=== PATIENT | male | born 1955 | race Caucasian/White ===

== ENCOUNTER 2016-09-30 09:18 | Outpatient (CLI) | payer BC | END 2016-09-30 09:19 | disposition home or self-care (01) | DX: C61 Malignant neoplasm of prostate (principal) ==

== ENCOUNTER 2016-12-02 14:00 | Outpatient (CLI) | payer BC | END 2016-12-02 14:01 | disposition home or self-care (01) | DX: R21 Rash and other nonspecific skin eruption (principal) ==

== ENCOUNTER 2017-03-06 08:00 | Outpatient (CLI) | payer BC ==
[2017-03-12 13:40] LABS: ACETONE None Detected (()); AMPHETAMINES negative (()); BARBITURATES negative (()); BENZODIAZEPINES negative (()); ETHYL ALCOHOL 12 mg/dL (()); ISOPROPANOL None Detected (()); METHADONE negative (()); METHYL ALCOHOL None Detected (()); OPIATES negative (()); PROPOXYPHENE negative (())
== END 2017-03-06 08:01 | disposition home or self-care (01) ==
LOC: LAB.F 08:00
PROVIDERS: ATTEND Family Medicine
DX: G89.4 Chronic pain syndrome (principal)
CPT/HCPCS: 36415; 80307; 80320

== ENCOUNTER 2017-04-01 11:03 | Outpatient (CLI) | payer SELFPAY | END 2017-04-01 11:04 | disposition home or self-care (01) | DX: C61 Malignant neoplasm of prostate (principal) ==

== ENCOUNTER 2018-04-24 09:37 | Outpatient (CLI) | payer SELFPAY | END 2018-04-24 09:38 | disposition home or self-care (01) | LOC: LAB.F 09:37 | PROVIDERS: ATTEND Family Medicine | DX: C61 Malignant neoplasm of prostate (principal) | CPT/HCPCS: 36415; 84153 ==

== ENCOUNTER 2018-05-26 10:30 | Outpatient (CLI) | payer OTHER ==
[2018-05-26 20:07] LABS: MUDS CUTOFF CONCENTRATIONS CUTOFF CONC BELOW:
[2018-05-26 20:26] LABS: AMPHETAMINE SCREEN,URINE NEGATIVE (NEGATIVE); BENZODIAZEPINES SCREEN, URINE POSITIVE (NEGATIVE); COCAINE SCREEN URINE NEGATIVE (NEGATIVE); METHADONE SCREEN, URINE NEGATIVE (NEGATIVE); METHAMPHETAMINES SCREEN, URINE NEGATIVE (NEGATIVE); OPIATE SCREEN, URINE NEGATIVE (NEGATIVE); OXYCODONE SCREEN, URINE POSITIVE (NEGATIVE); PROPOXYPHENE SCREEN, URINE NEGATIVE (NEGATIVE); TRICYCLIC ANTIDEPRESSANT,URINE NEGATIVE (NEGATIVE)
== END 2018-05-26 10:31 | disposition home or self-care (01) ==
LOC: LAB.R 10:30
PROVIDERS: ATTEND Nurse Practitioner Family
DX: Z79.891 Long term (current) use of opiate analgesic (principal)
CPT/HCPCS: 80306

== ENCOUNTER 2018-08-27 08:00 | Outpatient (CLI) | payer OTHER ==
[2018-08-27 14:01] LABS: MUDS CUTOFF CONCENTRATIONS CUTOFF CONC BELOW:
[2018-08-27 14:48] LABS: AMPHETAMINE SCREEN,URINE NEGATIVE (NEGATIVE); BENZODIAZEPINES SCREEN, URINE POSITIVE (NEGATIVE); COCAINE SCREEN URINE NEGATIVE (NEGATIVE); METHADONE SCREEN, URINE NEGATIVE (NEGATIVE); METHAMPHETAMINES SCREEN, URINE NEGATIVE (NEGATIVE); OPIATE SCREEN, URINE NEGATIVE (NEGATIVE); OXYCODONE SCREEN, URINE POSITIVE (NEGATIVE); PROPOXYPHENE SCREEN, URINE NEGATIVE (NEGATIVE); TRICYCLIC ANTIDEPRESSANT,URINE NEGATIVE (NEGATIVE)
== END 2018-08-27 23:59 | disposition home or self-care (01) ==
LOC: LAB.R 08:00
PROVIDERS: ATTEND Nurse Practitioner Family
DX: Z79.891 Long term (current) use of opiate analgesic (principal)
CPT/HCPCS: 80306

== ENCOUNTER 2018-11-03 14:17 | Outpatient (CLI) | payer OTHER | END 2018-11-03 14:18 | disposition home or self-care (01) | LOC: SC 14:17 | PROVIDERS: ATTEND Nurse Practitioner Family | DX: G47.33 Obstructive sleep apnea (adult) (pediatric) (principal); E66.9 Obesity, unspecified; Z68.36 Body mass index [BMI] 36.0-36.9, adult | CPT/HCPCS: 99204; 99212 ==

== ENCOUNTER 2018-11-15 19:30 | Outpatient (CLI) | payer OTHER | END 2018-11-15 23:59 | disposition home or self-care (01) | LOC: SC 19:30 | PROVIDERS: ATTEND Internal Medicine Pulmonary Disease | DX: G47.33 Obstructive sleep apnea (adult) (pediatric) (principal) | CPT/HCPCS: 95806 ==

== ENCOUNTER 2018-12-14 09:41 | Outpatient (CLI) | payer OTHER | END 2018-12-14 09:42 | disposition home or self-care (01) | LOC: SC 09:41 | PROVIDERS: ATTEND Internal Medicine Pulmonary Disease | DX: G47.33 Obstructive sleep apnea (adult) (pediatric) (principal) | CPT/HCPCS: 99212; 99213 ==

== ENCOUNTER 2019-01-11 08:00 | Outpatient (CLI) | payer OTHER ==
[2019-01-11 17:55] LABS: HB2 TOTAL 16.4 g/dL; HEMOGLOBIN A1C 0.57 g/dL; HEMOGLOBIN A1C % 5.3 % (4.6-6.2)
[2019-01-11 18:02] LABS: BASOPHILS % (AUTO) 0.5 %; EOSINOPHILS # (AUTO) 0.1 10^3/uL (0.0-0.7); EOSINOPHILS % (AUTO) 2.1 %; HGB - HEMOGLOBIN 15.1 g/dL (14.0-18.0); LYMPHOCYTES # (AUTO) 1.4 10^3/uL (1.5-3.5); LYMPHOCYTES % (AUTO) 19.5 %; MEAN CORPUSCULAR HGB CONC 33.9 g/dL (32.0-36.0); MEAN CORPUSCULAR VOLUME 91.6 fL (80.0-94.0); MEAN PLATELET VOLUME 7.8 fL (7.4-11.4); MONOCYTES # (AUTO) 0.6 10^3/uL (0.0-1.0); MONOCYTES % (AUTO) 7.8 %; NEUTROPHILS # (AUTO) 4.9 10^3/uL (1.5-6.6); NEUTROPHILS % (AUTO) 70.1 %; PLT - PLATELET COUNT 243 10^3/uL (130-450); RED BLOOD COUNT 4.86 10^6/uL (4.70-6.10); RED CELL DISTRIBUTION WIDTH 13.3 % (12.0-15.0)
[2019-01-11 18:05] LABS: ALBUMIN 3.9 g/dL (3.2-5.5); ALBUMIN/GLOBULIN RATIO 1.1 (1.0-2.2); ALKALINE PHOSPHATASE 69 IU/L (42-121); ALT ALANINE AMINOTRANSFERASE 29 IU/L (10-60); AST ASPARTATE AMINOTRANSFERASE 27 IU/L (10-42); BILIRUBIN,TOTAL 1.1 mg/dL (0.2-1.0); BUN - BLOOD UREA NITROGEN 16 mg/dL (6-20); CALCIUM 8.7 mg/dL (8.5-10.3); CARBON DIOXIDE - CO2 27 mmol/L (21-32); CHLORIDE 104 mmol/L (101-111); CHOL/HDL RATIO 2.5 (<5.0); CHOLESTEROL 179 mg/dL; CREATININE 0.8 mg/dL (0.6-1.2); GFR - MDRD 98 (>89); GLUCOSE 99 mg/dL (70-100); HDL CHOLESTEROL 72 mg/dL; LDL CHOLESTEROL,CALCULATED 93 mg/dL; LDL/HDL RATIO 1.3 (<3.6); SODIUM 136 mmol/L (135-145); TOTAL PROTEIN 7.3 g/dL (6.7-8.2); VLDL CHOLESTEROL 14 mg/dL
== END 2019-01-11 23:59 | disposition home or self-care (01) ==
LOC: LAB.S 08:00
PROVIDERS: ATTEND Nurse Practitioner Family
DX: I10 Essential (primary) hypertension (principal); Z13.220 Encounter for screening for lipoid disorders; Z13.1 Encounter for screening for diabetes mellitus; Z12.5 Encounter for screening for malignant neoplasm of prostate
CPT/HCPCS: 36415; 80053; 80061; 83036; 83721; 84153; 84443; 85025

== ENCOUNTER 2020-03-02 12:37 | Outpatient (CLI) | payer OTHER ==
--- NOTE | 2020-03-02 13:00 | XRAY Report ---
Reason: FATIGUE, COUGH Procedure Date: 03/02/2020 Accession Number: [id number] / [id number] Procedure: XRS - Chest 2 View X-Ray CPT Code: 83315 Final Report FULL RESULT: PROCEDURE: Chest 2 View X-Ray INDICATIONS: FATIGUE, COUGH TECHNIQUE: 2 view(s) of the chest. COMPARISON: None. FINDINGS: Surgical changes and devices: None. Lungs and pleura: No pleural effusions or pneumothorax. Minimal streaky opacity at the left lung base. Mediastinum: Mediastinal contours are normal. Heart size is normal. Bones and chest wall: No suspicious bony abnormalities. Soft tissues appear unremarkable. IMPRESSION: Minimal streaky opacity at the left lung base. Favor atelectasis over pneumonia. Reviewed by: Antonio Olivera MD on 03/02/2020 12:58 PM PDT Approved by: Antonio Olivera MD on 03/02/2020 12:58 PM PDT Station ID: [id number]
== END 2020-03-02 12:38 | disposition home or self-care (01) ==
LOC: DI.S 12:37
PROVIDERS: ATTEND Registered Nurse
DX: R53.83 Other fatigue (principal); R05 Cough
CPT/HCPCS: 71046

== ENCOUNTER 2020-03-21 10:02 | Outpatient (CLI) | payer OTHER ==
[2020-03-21 15:19] LABS: BASOPHILS # (AUTO) 0.1 10^3/uL (0.0-0.1); BASOPHILS % (AUTO) 0.8 %; EOSINOPHILS # (AUTO) 0.2 10^3/uL (0.0-0.7); EOSINOPHILS % (AUTO) 3.1 %; HGB - HEMOGLOBIN 14.7 g/dL (14.0-18.0); LYMPHOCYTES # (AUTO) 1.2 10^3/uL (1.5-3.5); LYMPHOCYTES % (AUTO) 18.9 %; MEAN CORPUSCULAR HEMOGLOBIN 31.1 pg (27.0-31.0); MEAN CORPUSCULAR HGB CONC 33.1 g/dL (32.0-36.0); MEAN CORPUSCULAR VOLUME 94.1 fL (80.0-94.0); MEAN PLATELET VOLUME 9.7 fL (7.4-11.4); MONOCYTES # (AUTO) 0.5 10^3/uL (0.0-1.0); MONOCYTES % (AUTO) 7.5 %; NEUTROPHILS # (AUTO) 4.2 10^3/uL (1.5-6.6); PLT - PLATELET COUNT 219 10^3/uL (130-450); RED BLOOD COUNT 4.72 10^6/uL (4.70-6.10); RED CELL DISTRIBUTION WIDTH 12.9 % (12.0-15.0); WHITE BLOOD COUNT 6.1 x10^3/uL (4.8-10.8)
[2020-03-21 15:45] LABS: ALBUMIN/GLOBULIN RATIO 1.2 (1.0-2.2); ALKALINE PHOSPHATASE 62 IU/L (42-121); ALT ALANINE AMINOTRANSFERASE 32 IU/L (10-60); AST ASPARTATE AMINOTRANSFERASE 27 IU/L (10-42); BILIRUBIN,TOTAL 0.7 mg/dL (0.2-1.0); BUN - BLOOD UREA NITROGEN 18 mg/dL (6-20); CALCIUM 8.9 mg/dL (8.5-10.3); CARBON DIOXIDE - CO2 26 mmol/L (21-32); CHLORIDE 105 mmol/L (101-111); CHOL/HDL RATIO 2.4 (<5.0); CHOLESTEROL 178 mg/dL; CREATININE 0.7 mg/dL (0.6-1.2); GLUCOSE 96 mg/dL (70-100); HDL CHOLESTEROL 74 mg/dL; LDL CHOLESTEROL,CALCULATED 92 mg/dL; LDL/HDL RATIO 1.2 (<3.6); SODIUM 139 mmol/L (135-145); TOTAL PROTEIN 7.3 g/dL (6.7-8.2); VLDL CHOLESTEROL 12 mg/dL
== END 2020-03-21 10:03 | disposition home or self-care (01) ==
LOC: LAB.S 10:02
PROVIDERS: ATTEND Registered Nurse
DX: R53.83 Other fatigue (principal); R05 Cough; I10 Essential (primary) hypertension; G47.30 Sleep apnea, unspecified
CPT/HCPCS: 36415; 80053; 80061; 83721; 84443; 85025; 86769

== ENCOUNTER 2020-03-29 11:35 | Outpatient (CLI) | payer OTHER ==
[2020-03-29] MEDS ORDERED: IOVERSOL 320 100 ML VIAL IVP ONE ×2 (11:44→13:16)
--- NOTE | 2020-03-29 13:34 | CT Report ---
PROCEDURE: CHEST W INDICATIONS: CHEST XRAY,ABNORMAL,FATIGUE, COUGH CONTRAST: IV CONTRAST: Optiray 320 ml: 100 PO CONTRAST: *NO PO CONTRAST TECHNIQUE: After the administration of intravenous contrast, 5 mm thick sections acquired from the pulmonary api kiki to the posterior costophrenic angles. 7 mm thick coronal MIP reformats were acquired. For radia tion dose reduction, the following was used: automated exposure control, adjustment of mA and/or kV according to patient size. COMPARISON: CXR 03/02/2020. CT abdomen and pelvis 04/11/2014. FINDINGS: Image quality: Excellent. Lungs and pleura: No significant acute air space opacities. Mild streaky opacity in the right lung b ase and lingula consistent with atelectasis. No pleural effusions or pneumothorax. Central and perip heral airways are patent and normal in caliber. Mediastinum: Heart size is normal. No pericardial effusion. No mediastinal or hilar adenopathy by size criteria. Thoracic aorta and central pulmonary arteries are normal in size. No central pulmonar y embolism. Esophagus is normal in caliber. No hiatal hernia. Bones and chest wall: Gynecomastia. No suspicious bony lesions. Mild height loss at the T12 vertebra l body, unchanged. No axillary or supraclavicular adenopathy by size criteria. Thyroid gland is unr emarkable. Abdomen: Hepatic steatosis. Visualized upper abdominal solid organs otherwise appear normal. Upper a bdominal bowel loops are normal in caliber. IMPRESSION: 1. Minimal atelectasis. No pneumonia demonstrated. 2. No mass or adenopathy. 3. Hepatic steatosis. Reviewed by: Antonio Olivera MD on 03/29/2020 1:32 PM PDT Approved by: Antonio Olivera MD on 03/29/2020 1:32 PM PDT Station ID: [id number]
== END 2020-03-29 11:36 | disposition home or self-care (01) ==
LOC: DI 11:35
PROVIDERS: ATTEND Registered Nurse
DX: R91.8 Other nonspecific abnormal finding of lung field (principal); K76.0 Fatty (change of) liver, not elsewhere classified
CPT/HCPCS: 71260; Q9967

== ENCOUNTER 2020-04-05 10:42 | Outpatient (CLI) | payer OTHER ==
--- NOTE | 2020-04-05 11:47 | XRAY Report ---
PROCEDURE: Thoracic Spine 2 View INDICATIONS: BACK PAIN TECHNIQUE: 3 views of the thoracic spine were acquired. COMPARISON: None. FINDINGS: Bones: No fractures or dislocations. There is, however, bridging osteophytes along the thoracic spin e and what appears to be a mild reduction of vertebral body disc height at T12, potentially a candi sánchez fracture of indeterminant age. This is seen both on the frontal and lateral views. No suspiciou s bony lesions. 12 pairs of ribs are noted, and appear intact where visualized. Soft tissues: No paravertebral stripe thickening. IMPRESSION: Suspect mild compression fracture at T12, chronicity uncertain. Body habitus is relatively large, murray lity of visualization through this area is somewhat limited. MR scanning can accurately establish pre sence or absence of acute or subacute compression fractures if clinically warranted. Reviewed by: Luis Yeboah MD on 04/05/2020 11:46 AM PDT Approved by: Luis Yeboah MD on 04/05/2020 11:46 AM PDT Station ID: [id number]
--- NOTE | 2020-04-05 11:55 | XRAY Report ---
PROCEDURE: Lumbar Spine Complete INDICATIONS: BACK PAIN TECHNIQUE: 5 views of the lumbar spine were acquired. COMPARISON: Comparison thoracic spine plain films same day reviewed. FINDINGS: Bones: 5 [id number] vertebrae are present. There is normal bony alignment maintained by prior transverse pedicle screw placement and vertical fixation rods crossing L4-L5. Note is made that the i nferior transverse pedicle screws at the L5 level is fractured and slightly angulated as a subtle fin ding but definite. Note is made of a T12 mild anterior wedge compression fracture, chronicity uncertain. No definite ac [place] vertebral body compression fractures. No suspicious bony lesions. Soft tissues: Overlying bowel gas pattern is normal. No suspicious soft tissue calcifications. IMPRESSION: 1. Prior L4-L5 fusion procedure with transverse pedicle screws and vertical fixation rods crossing th is area. Inferior right-handed transverse pedicle screw is fractured but only slightly displaced on t his examination. 2. 30% anterior wedge compression fracture at T12, chronicity uncertain. Reviewed by: Luis Yeboah MD on 04/05/2020 11:53 AM PDT Approved by: Luis Yeboah MD on 04/05/2020 11:53 AM PDT Station ID: [id number]
== END 2020-04-05 10:43 | disposition home or self-care (01) ==
LOC: DI.S 10:42
PROVIDERS: ATTEND Family Medicine
DX: R93.7 Abnormal findings on diagnostic imaging of other parts of musculoskeletal system (principal); M48.54XA Collapsed vertebra, not elsewhere classified, thoracic region, initial encounter for fracture; T84.296A Other mechanical complication of internal fixation device of vertebrae, initial encounter; N40.0 Benign prostatic hyperplasia without lower urinary tract symptoms; Z98.1 Arthrodesis status; Z85.46 Personal history of malignant neoplasm of prostate
CPT/HCPCS: 36415; 72070; 72110; 84153

== ENCOUNTER 2022-09-10 14:18 | Outpatient (CLI) | payer OTHER ==
[2022-09-10 15:19] VITALS: BP 128/70
--- NOTE | 2022-09-10 15:19 | SLEEP CARE CONSULTATION ---
Information from patient questionnaire entered by Dyan Lopez. I have reviewed and concur with the information entered by Dyan Lopez. This document represents the service I personally performed and the decisions made by me, Christine Villa ARNP. History of Present Illness Service Date and Time: 09/10/2022 1418 Reason for Visit: New patient, sleep apnea on CPAP therapy, Re-establish care Chief Complaint: reports: Unrefreshed sleep, Snoring, Observed pauses in breathing, Fatigue, Frequent awakenings at night, Other (UPDATE UPPLIES ) Date of Onset: 20+YRS Usual bedtime: 9PM Time it takes to fall asleep: 10MIN Snores at night: Yes Observed to quit breathing while asleep: Yes Sleeps alone due to snoring: Yes Number of times waking at night: 3-4 Reasons for waking at night: reports: Other (MACHINE AND MASK NOISE ) Toss, Turn, or Twitch while sleeping: Yes Recalls having dreams: Yes Usually gets out of bed at: 8AM Feels refreshed in the morning: No Morning headache: No Sleepy or fatigued during the day: Yes Ever fallen asleep while driving: No Takes day naps: No Prior sleep studies: Yes (THREE YRS AGO AT HOME ) Additional HPI information: ISAI MARQUES was previously diagnosed to have very severe, AHI 65.1, obstructive sleep apnea-hypopnea syndrome and comes in today to re-establish care for CPAP therapy. - Parasomnia Symptoms Ever been unable to move upon waking from sleep: No Walks in sleep: No Talks in sleep: No Ever acted out dreams in sleep: No Ever felt weak in the knees when startled or emotional: No Bothered by creepy, crawly, restless sensations in legs: Yes Problems with memory or concentration: Yes CPAP Compliance Data - Data Reviewed with Patient Average duration of nightly device use: 7 hours 44 minutes Compliance rate %: 96 (90/90 days used) Current pressure setting (cmH2O): 10-15 Average residual AHI: 5.5 Central apnea: 0.5 Obstructive apnea: 1.4 Average large leak: 32.0 l/min Compliance data discussion: Patient had HST with [facility] on 11/15/2018 which showed severe obstructive sleep apnea with AHI of 65.1. He gets his supplies from [employer]. He has a ResMed Airsense 10 that is making loud noises when he is using it for the last 4-6 months and the noise is getting louder. He is using a nasal cushion mask that goes over a nose. He has not changed this for a long time and I advised him to change it more often to reduce large mask leaks. Subjective Patient concerns: reports: other (CPAP making loud noises with respirations). denies: aerophagia, mask discomfort, air blowing in eyes, mask leak noise, condensation in mask/hose, nasal congestion, dry mouth, nose, throat, epistaxis Observed to snore while using device: No Current pressure setting perceived as: comfortable On therapy, patient: reports: sleeping better, awakening more refreshed, being more awake and alert during the day, more rested overall, other (he says he can't sleep without it). denies: drowsiness while driving Initial Henderson Sleepiness Scale score: 8 (09/10/22) Past Medical History Past Medical History: reports: Hypertension, Claustrophobia, Arthritis, Impotence, Attention deficit Social History The patient's occupation is a RE. Patient is and lives in [place]. Have you smoked in the past 12 months: No Cigarettes per day (20/pack): 40 Years of smokin Quit date: 1986 Smoking Pack Years: 30.0 Alcohol use: Yes Alcohol amount and frequency: 2 DRINKS EVERY NIGHT Caffeine use: No Family History Family history of sleep disordered breathing: Yes Family Hx Sleep Apnea: Father: Snoring, Sibling: Snoring, Sleep apnea - Treated Allergies and Home Medications Known drug allergies: Yes (PENICILLINS) Drug allergies reviewed: Yes Home medication list reviewed: Yes (see list in EMR) Review of Systems Weight gain over past 5 years: 20 Cardiovascular: reports: high blood pressure Gastrointestinal: denies: heartburn Urinary: reports: urgency, impotence Neurological: reports: gait or balance problems. denies: headaches Psychiatric: reports: Attention Deficit Hyperactivity. denies: anxiety, depression Endocrine: denies: thyroid disease Musculoskeletal: reports: joint pain, back pain Immunologic: reports: rash, itching Physical Exam Vital signs obtained and entered by: DYAN Morales MA Blood Pressure: 128/70 (LEFT ARM) Cuff size: regular Heart Rate: 76 O2 Saturation: 96 Height: 5 ft 10 in Weight: 244 lb 9.6 oz Body Mass Index: 35.1 BMI Classification: Obese Neck circumference: 19 Heart: regular rate and rhythm Lungs: clear bilaterally Impression and Plan 1. Obstructive Sleep Apnea-Hypopnea Syndrome, very severe, with good treatment compliance and good apnea control with minimal elevation of residual AHI. On CPAP therapy, the patient has better sleep quality and is more rested overall. Patient states in the last 4 to 6 months there is a noise coming from his mac indra when he is using it. It gets louder when he breathes with the machine. He has had to use the earplugs to be able to sleep because he cannot sleep without his CPAP. He has tried to call his DME and insurance company to get a replacement but he has not been able to get anyone on the phone. He has a ResMed Airsense 10 that was received in 2019. The patients CPAP is starting to make louder noise, a sign of malfunction. Thus we will try to get the CPAP updated. A DWO prescription will be made. Compliance guidelines for new device and follow up discussed.Patient's apnea severity and rationale for treatment to reduce apnea, improve sleep quality and reduce cardiovascular and cerebrovascular events was reviewed. I also reviewed the benefit of consistent device use of CPAP for hypertension and attention deficit. 2. Obesity, unspecified. Currently patients BMI is 35.1. Obesity increases the risk of apnea, CPAP pressure requirements and overall health risks especially cardiovascular and diabetes. Thus patient is advised to lose weight. * Continue auto CPAP pressure at 10-15 cmH2O * Update machine due to malfunction * Update supplies * Notify me if snoring with mask or feeling that the pressure is too much or too little * Attempt to lose weight * Call this office if any problems using CPAP * Return for follow up one month after obtaining new machine, or sooner if concerns arise Counseling Topics: Spare mask, Weight loss health impact Visit Type: In Office Time Spent with Patient (minutes): 30 Provider Statement: I spent 100% of the Face to Face Visit with the patient with greater than 50% spent counseling the patient and coordination of care.
== END 2022-09-10 14:19 | disposition home or self-care (01) ==
LOC: SC 14:18
PROVIDERS: ATTEND Nurse Practitioner Family
DX: G47.33 Obstructive sleep apnea (adult) (pediatric) (principal); E66.9 Obesity, unspecified; Z68.35 Body mass index [BMI] 35.0-35.9, adult; Z87.891 Personal history of nicotine dependence
CPT/HCPCS: 99203; 99212

== ENCOUNTER 2022-11-04 12:05 | Outpatient (CLI) | payer OTHER ==
--- NOTE | 2022-11-04 13:29 | XRAY Report ---
PROCEDURE: Hand 3 View LT INDICATIONS: LEFT HAND PAIN TECHNIQUE: 3 views of the hand(s) acquired. COMPARISON: Left wrist 3 views from the same date FINDINGS: Bones: Remote ORIF of the distal radius and ulna. Orthopedic hardware intact. Extensive posttraumatic degenerative change. Chronic pole or dislocation at the radiocarpal joint and distal dissociation be tween the radius and ulna, which are wider heart and normal. Deformity of the lunate secondary to tra huang and degenerative change. On the lateral view, there is a suggestion of a possible acute fracture of the dorsal aspect of the base of one of the metacarpal bones. Soft tissues: No suspicious soft tissue calcifications. IMPRESSION: 1. Remote ORIF of the distal radius and ulna. 2. Chronic posttraumatic degenerative change. 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 3. Suggestion of possible dorsal aspect base of metacarpal fracture seen on the lateral view. Reviewed by: Khoa Vaughn MD on 11/04/2022 1:28 PM PST Approved by: Khoa Vaughn MD on 11/04/2022 1:28 PM PST Station ID: [id number]
--- NOTE | 2022-11-04 15:42 | XRAY Report ---
PROCEDURE: Wrist 3 View LT INDICATIONS: LEFT WRIST PAIN TECHNIQUE: 3 views of the wrist were acquired. COMPARISON: Left hand radiographs same day FINDINGS: Bones: Postsurgical changes of the left wrist redemonstrated with a distal ulnar plate and screw, and distal radius plate and multiple screws. The hardware appears intact. There is pronounced degenerati ve changes of the radiocarpal articulation with joint space loss, and bony deformity. Possible wideni ng of the distal radial ulnar joint. Remote ulnar styloid fracture present. No definite acute fractur e identified. Soft tissues: No suspicious soft tissue calcifications. IMPRESSION: Postsurgical changes and substantial likely post traumatic degenerative changes of the wrist. No defi nite acute fracture visualized, but anatomical distortion makes evaluation difficult. If symptoms per sist, follow-up radiographs and/or CT may be helpful for further evaluation. Reviewed by: Gurwinder Cespedes MD on 11/04/2022 3:41 PM PST Approved by: Gurwinder Cespedes MD on 11/04/2022 3:41 PM PST Station ID: [id number]
== END 2022-11-04 12:08 | disposition home or self-care (01) ==
LOC: DI.S 12:05
PROVIDERS: ATTEND Registered Nurse
DX: M19.132 Post-traumatic osteoarthritis, left wrist (principal); M24.432 Recurrent dislocation, left wrist

== ENCOUNTER 2022-12-19 08:00 | Outpatient (CLI) | payer OTHER ==
--- NOTE | 2022-12-19 11:35 | XRAY Report ---
PROCEDURE: Hand 3 View LT INDICATIONS: LEFT 3RD MC FRACTURE TECHNIQUE: 3 views of the left hand(s) acquired. COMPARISON: 11/04/2022 FINDINGS: Bones: Again noted is what appears to be a nondisplaced fracture involving the base of the third meta carpal. This appears stable from prior examination. Again noted is old postsurgical change involving the distal radius and ulna. There is a chronic dislo cation of the radial carpal joint with associated severe degenerative change. No suspicious bony lesions. Soft tissues: No suspicious soft tissue calcifications. IMPRESSION: 1. Relatively unchanged appearance of a nondisplaced fracture involving the base of the third metacar pal. 2. 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 3. Old stable postsurgical changes distal radius and ulna. Reviewed by: Neo Moore MD on 12/19/2022 11:34 AM PDT Approved by: Neo Moore MD on 12/19/2022 11:34 AM PDT Station ID: [id number]
--- NOTE | 2022-12-19 14:25 | XRAY Report ---
PROCEDURE: Wrist 3 View LT INDICATIONS: LEFT WRIST ORIF TECHNIQUE: 3 views of the wrist were acquired. COMPARISON: X-ray wrist 11/04/2022 FINDINGS: Bones: Distal radial fixation as well as ulnar fixation are identified. All hardware appears intact. There remains a slight posterior displacement of the carpal bones in relation to the radiocarpal join t on lateral view. This is unchanged. Soft tissues: No suspicious soft tissue calcifications. IMPRESSION: Aligned radial fixation with stable appearance of alignment. Reviewed by: Rosa Warner MD on 12/19/2022 2:24 PM PDT Approved by: Rosa Warner MD on 12/19/2022 2:24 PM PDT Station ID: [id number]
== END 2022-12-19 23:59 | disposition home or self-care (01) ==
LOC: DI.WOS 08:00
PROVIDERS: ATTEND Orthopaedic Surgery
DX: S62.313D Displaced fracture of base of third metacarpal bone, left hand, subsequent encounter for fracture with routine healing (principal); M19.042 Primary osteoarthritis, left hand

== ENCOUNTER 2023-07-23 11:24 | Outpatient (CLI) | payer OTHER ==
--- NOTE | 2023-07-23 12:12 | XRAY Report ---
PROCEDURE: Chest 2 View X-Ray INDICATIONS: PRODUCTIVE COUGH TECHNIQUE: 2 views of the chest were acquired. COMPARISON: 03/02/2020 FINDINGS: Surgical changes and devices: None. Lungs and pleura: No pneumothorax. No substantial pleural effusion. Left lower lobe consolidation. R ight lung is clear. Mediastinum: Mediastinal contours appear normal. Heart size is normal. Bones and chest wall: No suspicious bony lesions. Overlying soft tissues appear unremarkable. IMPRESSION: Left lower lobe pneumonia. Recommend follow-up chest radiograph 4-6 weeks after treatment to document resolution of findings and /or return to baseline exam. Reviewed by: Jason Mark MD on 07/23/2023 12:11 PM PDT Approved by: Jason Mark MD on 07/23/2023 12:11 PM PDT Station ID: [id number]
== END 2023-07-23 23:59 | disposition home or self-care (01) ==
LOC: DI.S 11:24
PROVIDERS: ATTEND Physician Assistant
DX: J18.9 Pneumonia, unspecified organism (principal)

== ENCOUNTER 2023-07-30 11:41 | Outpatient (CLI) | payer OTHER ==
--- NOTE | 2023-07-30 14:32 | XRAY Report ---
PROCEDURE: Chest 2 View X-Ray INDICATIONS: PNEUMONIA, LEFT LOWER LOBE TECHNIQUE: 2 views of the chest were acquired. COMPARISON: None. FINDINGS: Surgical changes and devices: None. Lungs and pleura: No pleural effusions or pneumothorax. Continued left basilar pneumonia. Ill-define d lucency suggest possible cavity formation. Cannot exclude a pulmonary abscess. The size of the infi ltrate does not appear significantly different. Mediastinum: Mediastinal contours appear normal. Heart size is normal. Bones and chest wall: No suspicious bony lesions. Overlying soft tissues appear unremarkable. IMPRESSION: No significant change, size of left basilar pneumonia. Subtle findings suggest possible cavity format ion. Consider CT chest with IV contrast for further evaluation. Reviewed by: Khoa Vaughn MD on 07/30/2023 2:31 PM PST Approved by: Khoa Vaughn MD on 07/30/2023 2:31 PM PST Station ID: [id number]
== END 2023-07-30 23:59 | disposition home or self-care (01) ==
LOC: DI.S 11:41
PROVIDERS: ATTEND Registered Nurse
DX: J18.9 Pneumonia, unspecified organism (principal)

== ENCOUNTER 2023-08-12 11:11 | Outpatient (CLI) | payer OTHER ==
--- NOTE | 2023-08-12 15:38 | XRAY Report ---
PROCEDURE: Chest 2 View X-Ray INDICATIONS: LEFT LOWER LOBE PNEUMONIA TECHNIQUE: 2 views of the chest were acquired. COMPARISON: 07/23/2023, 07/30/2023 FINDINGS: Surgical changes and devices: None. Lungs and pleura: Stable left lower lobe consolidation. Mediastinum: Mediastinal contours appear normal. Heart size is normal. Bones and chest wall: No suspicious bony lesions. Overlying soft tissues appear unremarkable. IMPRESSION: Stable left lower lobe consolidation. Given persistence, recommend CT for further evaluation. Reviewed by: Gus Betancourt on 08/12/2023 3:37 PM [facility] Approved by: Gus Betancourt on 08/12/2023 3:37 PM [facility] Station ID: [id number]
== END 2023-08-12 23:59 | disposition home or self-care (01) ==
LOC: DI.S 11:11
PROVIDERS: ATTEND Emergency Medicine
DX: J18.9 Pneumonia, unspecified organism (principal)

== ENCOUNTER 2023-11-02 10:32 | Outpatient (CLI) | payer OTHER ==
--- NOTE | 2023-11-02 12:41 | Ultrasound Report ---
PROCEDURE: Abdomen Complete INDICATIONS: NAUSEA TECHNIQUE: Real-time scanning was performed of the abdominal and retroperitoneal organs, with image documentatio n. COMPARISON: None. FINDINGS: Evaluation is limited secondary to bowel gas. Liver: Liver is mildly enlarged and homogeneous in echotexture. Liver parenchyma is diffusely echoge teodora. Main portal vein is patent with hepatopedal flow. Gallbladder: No stones or sludge. Normal wall thickness measuring 3 mm. No pericholecystic fluid. Biliary ducts: Intrahepatic bile ducts are non-dilated. Extrahepatic bile duct caliber measures 5 m m. Normal is 6-7 mm or less in diameter, or 10 mm or less post-cholecystectomy. Pancreas: Visualized portions of the pancreas are sonographically normal. Spleen: Spleen is normal in size and homogeneous in echotexture. Kidneys: Kidneys are normal in size and echotexture. Right kidney measures 10.7 cm long; left kidne y measures 12 cm long. No hydronephrosis or nephrolithiasis. No solid masses. No complex renal cyst ic lesions which require follow-up. Aorta: Limited evaluation secondary to bowel gas. Distal abdominal aorta measures 1.7 x 1.7 cm, appro ximately. Iliacs: Not seen secondary to bowel gas. IVC: Intrahepatic inferior vena cava is patent. Miscellaneous: No free abdominal fluid. IMPRESSION: Evaluation is markedly limited secondary to bowel gas. 1.Liver is mildly enlarged and diffusely echogenic which may be seen in the setting of parenchymal di sease such as steatosis. 2.Normal gallbladder. No biliary ductal dilatation. 3.Pancreas, aorta and iliac vessels are not well seen secondary to bowel gas. Reviewed by: Melvin Nelson MD on 11/02/2023 12:39 PM PST Approved by: Melvin Nelson MD on 11/02/2023 12:39 PM PST Station ID: [id number]
== END 2023-11-02 10:33 | disposition home or self-care (01) ==
LOC: DI 10:32
PROVIDERS: ATTEND Registered Nurse
DX: R11.0 Nausea (principal); R16.0 Hepatomegaly, not elsewhere classified

== ENCOUNTER 2024-02-05 05:56 | Day surgery (SDC) | payer OTHER ==
[2024-02-05] MEDS: LACTATED RINGERS 1,000 ML IV ONE ×2 (06:08→08:12)
[2024-02-05] MEDS: PHENYLEPHRINE 2.5% OPHTH 2 ML DROPS ONE (06:30)
[2024-02-05] MEDS: PROPARACAINE 0.5% OPHTH DROPS 15 ML ONE (06:30)
[2024-02-05] MEDS: KETOROLAC 0.45% OPHTH DROPS ONE (06:30)
[2024-02-05] MEDS: CYCLOPENTOLATE 1% OPHTH DROPS 2 ML ONE (06:30)
--- NOTE | 2024-02-05 06:58 | ANESTHESIA ---
Pre-Anesthesia VS, & Labs - Diagnosis R mature cataract - Procedure R extraction cataract with IOL Vital Signs: Temp Pulse Resp BP Pulse Ox O2 Flow Rate 36.8 C 73 16 133/89 H 97 0 02/05/24 06:24 02/05/24 06:24 02/05/24 06:24 02/05/24 06:24 02/05/24 06:24 02/05/24 06:24 Height: 5 ft 9 in Weight (kg): 111 kg Body Mass Index: 36.1 BMI Classification: Obese - NPO >8 hours - Lab Results Lab results reviewed: Yes Home Medications and Allergies Home Medications: Ambulatory Orders Albuterol Sulf [Ventolin Hfa Inhaler] 2 puffs INH Q4HR PRN 02/04/24 Quetiapine Fumarate [Seroquel Xr] 50 mg PO HS 02/04/24 amLODIPine [Norvasc] 5 mg PO DAILY 02/04/24 Cholecalciferol (Vitamin D3) [Vitamin D] 2,000 unit PO DAILY 08/03/14 Tamsulosin [Flomax] 0.4 mg PO DAILY 08/03/14 Albuterol Sulf [Ventolin Hfa Inhaler] 2 puffs INH Q4HR PRN 02/04/24 Quetiapine Fumarate [Seroquel Xr] 50 mg PO HS 02/04/24 amLODIPine [Norvasc] 5 mg PO DAILY 02/04/24 Allergies/Adverse Reactions: Allergies Allergy/AdvReac Type Severity Reaction Status Date / Time Penicillins Allergy Hives/Respi Verified 02/04/24 11:55 ratory Anes History & Medical History - Anesthetic History Anesthesia Complications: reports: No previous complications Family history of Anesthesia Complications: Denies Family history of Malignant Hyperthermia: Denies - Medical History Cardiovascular: reports: Hypertension Pulmonary: reports: Asthma, Pneumonia, Sleep apnea, CPAP use Gastrointestinal: reports: Colon polyps Urinary: reports: Other Musculoskeletal: reports: Osteoarthritis, Chronic back pain, Other Endocrine/Autoimmune: reports: None Skin: reports: Other Smoking Status: Never smoker - Surgical History General: reports: Colonoscopy Eyes Ears Nose Throat (EENT): reports: Cataracts Urologic: reports: Prostatic surgery Orthopedic: reports: Spine surgery Dermatologic: Exam General: Alert, Oriented x3, Cooperative Dental: WNL Mouth Openin Fingerbreadth Neck Mobility: Normal Respiratory: Lungs clear, Normal breath sounds, No respiratory distress Cardiovascular: Regular rate Neurological: Normal speech Mental/Cognitive Status: Alert/Oriented X3, Normal for patient Cognitive Status: Within normal limits Plan Anesthesia Type: MAC Consent for Procedure(s) Verified and Reviewed: Yes Code Status: Attempt Resuscitation ASA classification: 2-Mild systemic disease Is this case an emergency?: No
[2024-02-05] MEDS ORDERED: EPINEPHrine 1 MG/ML AMP ONE (07:01)
[2024-02-05] MEDS ORDERED: TRIAMCIN/MOXIFLOX OPHTHALMIC 0.6 ML VIAL IO ONE (07:01)
[2024-02-05] MEDS ORDERED: TIMOLOL 0.5% OPHTH DROPS ONE (07:02)
[2024-02-05] MEDS ORDERED: BSS/LIDOCAINE/EPINEPHRINE 1 ML VIAL ONE (07:02)
[2024-02-05] MEDS ORDERED: BRIMONIDINE 0.2% OPHTH DROPS 5 ML ONE (07:02)
[2024-02-05] MEDS ORDERED: MIDAZOLAM 2 MG/2 ML VIAL ONE (07:16)
[2024-02-05] MEDS ORDERED: TRYPAN BLUE 0.5 ML SYRINGE IO ONE (07:17)
[2024-02-05] MEDS: TRYPAN BLUE 0.5 ML SYRINGE IO ONE (07:51)
[2024-02-05] MEDS: BRIMONIDINE 0.2% OPHTH DROPS 5 ML OPTH ONE (07:52)
[2024-02-05] MEDS: EPINEPHrine 1 MG/ML AMP IR ONE (07:52)
[2024-02-05] MEDS: BSS/LIDOCAINE/EPINEPHRINE 1 ML SYRINGE IO ONE (07:52)
[2024-02-05] MEDS: TIMOLOL 0.5% OPHTH DROPS OPTH ONE (07:52)
[2024-02-05] MEDS: TRIAMCIN/MOXIFLOX OPHTHALMIC 0.6 ML VIAL IO ONE (07:53)
[2024-02-05] MEDS: PROPARACAINE 0.5% OPHTH DROPS 15 ML EACHEYE ONE (07:53)
[2024-02-05] MEDS: VANCOMYCIN OPHTH (TOPICAL) 10 MG/ML SYRINGE TOP ONE (07:53)
--- NOTE | 2024-02-05 08:20 | ANESTHESIA POST OP EVALUATION ---
Anesthesia Post Eval - Post Anesthesia Eval Vitals: Last Vital Signs Temp 36.8 C 02/05/24 08:12 Pulse 70 02/05/24 08:12 Resp 14 02/05/24 08:12 BP 126/80 02/05/24 08:12 Pulse Ox 97 02/05/24 08:12 O2 Flow Rate 0 02/05/24 06:24 CV Function Including HR & BP: Stable Pain Control: Satisfactory Nausea & Vomiting: Negative Mental Status: Baseline Respiratory Status: Airway Patent Hydration Status: Satisfactory Anesthesia Complications: None
--- NOTE | 2024-02-05 08:24 | OPERATIVE REPORT ---
Operative Report - Other Other Information/Narrative: Date of Surgery: 02/05/24 Preop Dx: Complex, visually significant mature cataract right eye. Complex due to small pupil requiring mechanical dilation using a Malyugin ring and no red reflex requiring the use of Trypan Blue to stain the capsule. This was the first cataract surgery. Postop Dx: Same Procedure: Phacoemulsification with posterior chamber intraocular lens implant right eye Surgeon: Dr. Antonio Curiel Anesthesia: Monitored anesthesia care Complications: None Operative Indications: This is a 68-year-old M with progressive vision loss in the right eye due to 4+ brunescent (mature) nuclear sclerotic cataract. Best corrected visual acuity was 20/800 with glare to hand motion vision in the right eye. Indications for surgery were: - Overall decrease in vision - Difficulty seeing words on a computer screen - Difficulty reading - Difficulty seeing words, closed captions, or game scores on TV - Difficulty seeing street signs - Difficulty driving in low light or at night - Difficulty driving at night because of headlights from other vehicles - Difficulty with glare or bright lights in any situation - Difficulty tracking a golf ball - Decreased acuity with firearms The patient was consented at length concerning the risks and benefits of cataract surgery after which the patient expressed a desire to proceed with surgery. Operative Procedure: The patient was taken into OR#3 and placed under monitored anesthesia care. A surgical time-out was conducted confirming correct patient, correct procedure, and correct surgical site. The patient was given topical anesthesia and then prepped and draped in the usual sterile fashion. The eye was entered at the 6 and 3 oclock positions. Intracameral Shugarcaine was injected into the anterior chamber followed by a dispersive viscoelastic. Iris hooks were placed through 1mm limbal wounds placed inferotemporally, superotemporally, superonasally, and inferonasally and used to pull the pupil margin out of the area of the capsulorhexis. Trypan blue was then injected over the surface on the anterior capsule to stain it and then flushed out of the chamber using BSS. Addition dispersive viscoelastic was injected to refill the anterior chamber. A continuous-tear curvilinear capsulorhexis was performed (the capsule was thin and friable). The nucleus was hydrodissected and phacoemulsified. The cortex was evacuated using automated infusion and aspiration. A small capsule radialization was noted superiorly. A cohesive viscoelastic was injected into the capsular bag and a 21.5 diopter toric intraocular lens was inserted into the bag and rotated to axis 054. The radialization extending out toward the equator of the capsule during these manipulations. The iris hooks were disengaged from the pupillary margin and removed from the anterior chamber. Infusion and aspiration were used to evacuate the viscoelastic materials from the eye. The IOL axis was chacked for proper positioning. The wounds were hydrated and the eye inflated to physiologic pressure using balanced salt solution. Approximately 0.25ml of a mixture of triamcinolone and moxifloxacin was injected trans-sclerally into the vitreous in the inferotemporal quadrant using a 30 gauge cannula. An additional 0.25ml of a mixture of triamcinolone and moxifloxacin was injected subconjunctivally in the superior quadrant for infection and inflammation prophylaxis. Wound integrity was checked with Weck-Elinor sponges and the IOL axis again checked to be in the proper position. The patient was taken from the operating room in good condition and given post-op instructions.
[2024-02-05 08:35] VITALS: BP 125/85; O2SAT 96
== END 2024-02-05 05:57 | disposition home or self-care (01) ==
LOC: SDS 05:56
PROVIDERS: ATTEND Ophthalmology
DX: H25.89 Other age-related cataract (principal); N40.0 Benign prostatic hyperplasia without lower urinary tract symptoms; I10 Essential (primary) hypertension; Z79.899 Other long term (current) drug therapy; E66.9 Obesity, unspecified; Z68.36 Body mass index [BMI] 36.0-36.9, adult; G47.33 Obstructive sleep apnea (adult) (pediatric)
CPT/HCPCS: 66982; A9270; J3490; J7120

== ENCOUNTER 2024-04-12 08:00 | Outpatient (CLI) | payer OTHER ==
--- NOTE | 2024-04-12 11:37 | XRAY Report ---
PROCEDURE: Knee 3V RT INDICATIONS: RIGHT KNEE PAIN TECHNIQUE: 3 views of the knee(s) were acquired. COMPARISON: None. FINDINGS: Bones: No fractures or dislocations. No suspicious bony lesions. Tricompartment degenerative change . Severe medial compartment joint space loss. Soft tissues: No knee joint effusion. No suspicious soft tissue calcifications or masses. IMPRESSION: Degenerative arthritis with severe medial compartment joint space loss. Reviewed by: Khoa Vaughn MD on 04/12/2024 11:35 AM PDT Approved by: Khoa Vaughn MD on 04/12/2024 11:35 AM PDT Station ID: [id number]
== END 2024-04-12 23:59 | disposition home or self-care (01) ==
LOC: DI.S 08:00
PROVIDERS: ATTEND Physician Assistant Medical
DX: M17.11 Unilateral primary osteoarthritis, right knee (principal)